=== PATIENT | male | born 1955 | race Asian ===

== ENCOUNTER 2018-01-22 05:59 | Day surgery (SDC) | payer OTHER ==
[2018-01-22] MEDS ORDERED: LIDOCAINE 4% SOLUTION 50 ML BTL (07:49)
[2018-01-22] MEDS ORDERED: FENTAnyl 50 MCG/ML VIAL (08:43)
[2018-01-22] MEDS ORDERED: MIDAZOLAM 1 MG/ML 2 ML INJ ×2 (08:43)
== END 2018-01-22 11:39 | disposition home or self-care (01) ==
LOC: GIL 05:59
DX: Z12.11 Encounter for screening for malignant neoplasm of colon (principal); K64.4 Residual hemorrhoidal skin tags; K64.8 Other hemorrhoids; D12.4 Benign neoplasm of descending colon; K57.30 Diverticulosis of large intestine without perforation or abscess without bleeding; K20.8 Other esophagitis
CPT/HCPCS: 43239; 82962; 88305; 88312